=== PATIENT | male | born 1930 | race Caucasian/White ===

== ENCOUNTER 2019-04-21 10:26 | Inpatient (IN) ==
[2019-04-21] MEDS ORDERED: ONDANSETRON 4 MG/2 ML VIAL IV PRN (15:05)
[2019-04-21] MEDS ORDERED: ACETAMINOPHEN 325 MG TABLET PO PRN (15:05)
[2019-04-21] MEDS ORDERED: LACTULOSE 20 GM/30 ML UDCUP PO PRN (15:05)
[2019-04-21] MEDS ORDERED: ALBUTEROL 2.5 MG/3 ML NEB RESP TX PRN (15:10)
[2019-04-21] MEDS ORDERED: BENZONATATE 100 MG CAPSULE PO PRN (15:19)
[2019-04-21] MEDS: ALBUTEROL/IPRATROPIUM 3 ML NEB RESP TX SCH ×2 (15:50→19:17)
[2019-04-21] MEDS: LEVOFLOXACIN INJ 750 MG in PREMIX 1 EACH IV SCH (16:33)
[2019-04-21] MEDS: FUROSEMIDE 40 MG/4 ML VIAL IV SCH (16:39)
[2019-04-21 16:41] LABS: Basophils % 0.1 % (0.0-0.8); Hematocrit 32.8 VOL% (42.0-52.0); Hemoglobin 10.7 GM/DL (14.0-18.0); Immature Granulocytes % 0.7 %; Immature Granulocytes Absolute 0.13 #; Lymphocytes # 0.3 10*3/uL (1.4-4.0); Lymphocytes % 1.4 % (21.2-54.2); Mean Corpuscular HGB Conc 32.6 GM/DL (32-36); Mean Corpuscular Volume 90.1 FL (87-102); Mean Platelet Volume 10.5 FL (9.6-12.0); Monocytes % 3.4 % (1.7-12.7); Neutrophils % 94.4 % (38.7-73.9); Platelet Count 285 T/CUMM (130-400); Red Blood Count 3.64 MC/CUMM (3.8-5.5); Red Cell Distribution Width 14.6 % (9.3-17.3); White Blood Count 17.6 T/CUMM (4-12)
[2019-04-21 17:14] LABS: Albumin 2.3 G/DL (3.4-5.0); Bilirubin,Total 1.8 MG/DL (0.2-1.0); Calcium 8.1 MG/DL (8.5-10.1); Osmolality,Calculated 296.1 MOS/KG (273-304); Thyroid Stimulating Hormone 1.71 uIU/ml (0.358-3.74); Total Protein 6.2 G/DL (6.4-8.3)
[2019-04-21 17:37] LABS: Lymphocytes 2 % (20-55); Nucleated Red Blood Cells 1 (0-5); Segmented Neutrophils 95 % (50-85); Total Cells Counted 100
[2019-04-21 17:38] LABS: Burr Cells 1+; Platelet Estimate Normal; Poikilocytosis 1+; Reactive Lymphocytes Slight
[2019-04-21] MEDS: MEROPENEM 1,000 MG in SODIUM CHLORIDE 0.9% 100 ML IV SCH (17:40)
[2019-04-21] MEDS: POTASSIUM CHLORIDE 20 MEQ TABLET PO PRN (17:40)
[2019-04-21] MEDS: APIXABAN 5 MG TABLET PO SCH (20:29)
[2019-04-22] MEDS: ALBUTEROL/IPRATROPIUM 3 ML NEB RESP TX SCH ×4 (01:17→21:04)
[2019-04-22] MEDS: MEROPENEM 1,000 MG in SODIUM CHLORIDE 0.9% 100 ML IV SCH ×3 (01:23→18:33)
[2019-04-22 04:30] LABS: Basophils % 0.2 % (0.0-0.8); Hematocrit 34.7 VOL% (42.0-52.0); Hemoglobin 11.2 GM/DL (14.0-18.0); Immature Granulocytes % 0.8 %; Immature Granulocytes Absolute 0.15 #; Lymphocytes # 0.3 10*3/uL (1.4-4.0); Lymphocytes % 1.7 % (21.2-54.2); Mean Corpuscular HGB Conc 32.3 GM/DL (32-36); Mean Corpuscular Volume 90.6 FL (87-102); Mean Platelet Volume 10.8 FL (9.6-12.0); Monocytes % 5.4 % (1.7-12.7); Neutrophils % 91.9 % (38.7-73.9); Platelet Count 264 T/CUMM (130-400); Red Blood Count 3.83 MC/CUMM (3.8-5.5); Red Cell Distribution Width 14.7 % (9.3-17.3); White Blood Count 18.4 T/CUMM (4-12)
[2019-04-22 04:45] LABS: Albumin 2.3 G/DL (3.4-5.0); Bilirubin,Total 1.5 MG/DL (0.2-1.0); Calcium 8.1 MG/DL (8.5-10.1); Osmolality,Calculated 301.7 MOS/KG (273-304); Risk Ratio 2.53; Total Protein 5.7 G/DL (6.4-8.3); VLDL CHOLESTEROL 9.8 MG/DL
[2019-04-22 05:10] LABS: Amorphous Crystals,Urine Occasional /HPF (Few); Apearance,Urine CLEAR (Clear); Bacteria,Urine Occasional /HPF (Few); Bilirubin,Urine Negative (Negative); Blood, Urine Moderate mg/dL (Negative); Glucose,Urine (UA) 50 mg/dL (Negative); Hyaline Casts,Urine 18 /LPF (0-3); Ketones,Urine 5 mg/dL (Negative); Mucus,Urine Occasional /LPF (Occasional); Nitrite,Urine Negative (Negative); Protein,Urine 30 MG/DL; RBC,Urine <1 /HPF (0-4); Squamous Epithelial Cell,Urine Occasional /HPF (0-10); Urine Color Yellow (Yellow); Urine Specific Gravity 1.017 (1.001-1.035); Urine Urobilinogen < 2.0 EU/DL (0.2-1.0); WBC,Urine 2 /HPF (0-6)
[2019-04-22 05:18] LABS: Lymphocytes 3 % (20-55); Platelet Estimate Adequate; Segmented Neutrophils 91 % (50-85); Total Cells Counted 100
[2019-04-22 05:19] LABS: Hypochromasia Slight; Ovalocytes Slight
[2019-04-22] MEDS ORDERED: hydrALAZINE 20 MG/1 ML VIAL IV PRN (08:35)
[2019-04-22] MEDS: FUROSEMIDE 40 MG/4 ML VIAL IV SCH ×2 (08:38→17:00)
[2019-04-22] MEDS ORDERED: LOSARTAN 25 MG TABLET PO SCH (09:00)
[2019-04-22] MEDS: APIXABAN 5 MG TABLET PO SCH ×2 (09:28→20:21)
[2019-04-22] MEDS: PANTOPRAZOLE 40 MG TABLET PO SCH (09:28)
[2019-04-22] MEDS: METOPROLOL SUCCINATE XL 50 MG TABLET PO SCH (09:28)
[2019-04-22] MEDS: TAMSULOSIN 0.4 MG CAPSULE PO SCH (09:28)
[2019-04-22] MEDS: ISOSORBIDE MONONITRATE 60 MG TABLET PO SCH (09:28)
[2019-04-22] MEDS: MAGNESIUM OXIDE 400 MG TABLET PO SCH (09:28)
[2019-04-22] MEDS: LOSARTAN 25 MG TABLET PO SCH (09:28)
[2019-04-22] MEDS: POTASSIUM CHLORIDE 20 MEQ TABLET PO PRN ×2 (10:06→12:48)
[2019-04-22] MEDS: LEVOFLOXACIN INJ 750 MG in PREMIX 1 EACH IV SCH (17:01)
[2019-04-23] MEDS: ALBUTEROL/IPRATROPIUM 3 ML NEB RESP TX SCH ×4 (01:19→19:41)
[2019-04-23] MEDS: MEROPENEM 1,000 MG in SODIUM CHLORIDE 0.9% 100 ML IV SCH ×2 (01:24→10:11)
[2019-04-23 05:55] LABS: Basophils % 0.1 % (0.0-0.8); Eosinophils % 0.1 % (0.00-10.9); Hematocrit 34.7 VOL% (42.0-52.0); Hemoglobin 11.2 GM/DL (14.0-18.0); Immature Granulocytes % 1.4 %; Immature Granulocytes Absolute 0.21 #; Lymphocytes # 0.5 10*3/uL (1.4-4.0); Lymphocytes % 3.2 % (21.2-54.2); Mean Corpuscular HGB Conc 32.3 GM/DL (32-36); Mean Corpuscular Volume 89.4 FL (87-102); Mean Platelet Volume 10.6 FL (9.6-12.0); Monocytes % 5.2 % (1.7-12.7); NRBC # 0.02 10*3/uL; Platelet Count 270 T/CUMM (130-400); Red Blood Count 3.88 MC/CUMM (3.8-5.5); White Blood Count 15.2 T/CUMM (4-12)
[2019-04-23 06:15] LABS: Hypochromasia Slight; Lymphocytes 5 % (20-55); Platelet Estimate Adequate; Segmented Neutrophils 91 % (50-85); Total Cells Counted 100
[2019-04-23] MEDS: MAGNESIUM OXIDE 400 MG TABLET PO SCH (09:23)
[2019-04-23] MEDS: PANTOPRAZOLE 40 MG TABLET PO SCH (09:23)
[2019-04-23] MEDS: METOPROLOL SUCCINATE XL 50 MG TABLET PO SCH (09:23)
[2019-04-23] MEDS: FLUCONAZOLE 100 MG TABLET PO SCH (09:23)
[2019-04-23] MEDS: LOSARTAN 25 MG TABLET PO SCH (09:24)
[2019-04-23] MEDS: APIXABAN 5 MG TABLET PO SCH ×2 (09:24→21:24)
[2019-04-23] MEDS: ISOSORBIDE MONONITRATE 60 MG TABLET PO SCH (09:24)
[2019-04-23] MEDS: NYSTATIN 500,000 UNIT/5 ML UDCUP SWISH/SWAL SCH ×2 (09:24→21:24)
[2019-04-23] MEDS: TAMSULOSIN 0.4 MG CAPSULE PO SCH (09:24)
[2019-04-23] MEDS: FUROSEMIDE 40 MG/4 ML VIAL IV SCH ×2 (09:25→16:19)
[2019-04-23] MEDS ORDERED: TUBERCULIN SKIN TEST 0.1 ML SYRINGE INTRADERM ONE (15:36)
[2019-04-23] MEDS: MELATONIN 3 MG TABLET PO SCH (21:24)
[2019-04-23] MEDS: traZODone 50 MG TABLET PO SCH (21:25)
[2019-04-24] MEDS: ALBUTEROL/IPRATROPIUM 3 ML NEB RESP TX SCH ×4 (01:03→19:47)
[2019-04-24] MEDS: MAGNESIUM OXIDE 400 MG TABLET PO SCH (09:36)
[2019-04-24] MEDS: ISOSORBIDE MONONITRATE 60 MG TABLET PO SCH (09:37)
[2019-04-24] MEDS: TAMSULOSIN 0.4 MG CAPSULE PO SCH (09:37)
[2019-04-24] MEDS: METOPROLOL SUCCINATE XL 50 MG TABLET PO SCH (09:37)
[2019-04-24] MEDS: APIXABAN 5 MG TABLET PO SCH ×2 (09:37→20:42)
[2019-04-24] MEDS: LOSARTAN 25 MG TABLET PO SCH (09:37)
[2019-04-24] MEDS: FLUCONAZOLE 100 MG TABLET PO SCH (09:37)
[2019-04-24] MEDS: PANTOPRAZOLE 40 MG TABLET PO SCH (09:37)
[2019-04-24] MEDS: FUROSEMIDE 40 MG/4 ML VIAL IV SCH ×2 (09:38→16:49)
[2019-04-24] MEDS: NYSTATIN 500,000 UNIT/5 ML UDCUP SWISH/SWAL SCH ×2 (09:38→20:41)
[2019-04-24] MEDS: Fluticasone Furoate-Vilanterol [Breo Ellipta] 1 inh INH SCH (09:40)
[2019-04-24] MEDS: methylPREDNISolone SOD SUC 40 MG/1 ML VIAL IV SCH ×3 (12:02→23:13)
[2019-04-24] MEDS ORDERED: GLUCAGON 1 MG VIAL IM PRN (20:00)
[2019-04-24] MEDS ORDERED: DEXTROSE 10% 250 ML BAG IV PRN (20:00)
[2019-04-24] MEDS: traZODone 50 MG TABLET PO SCH (20:42)
[2019-04-24] MEDS: MELATONIN 3 MG TABLET PO SCH ×2 (20:42→23:12)
[2019-04-24] MEDS: INSULIN LISPRO 100 UNIT/ML SUBCUT SCH (20:42)
[2019-04-25] MEDS: ALBUTEROL/IPRATROPIUM 3 ML NEB RESP TX SCH ×4 (01:10→20:35)
[2019-04-25 04:25] LABS: Basophils % 0.1 % (0.0-0.8); Eosinophils % 0.1 % (0.00-10.9); Hematocrit 34.8 VOL% (42.0-52.0); Hemoglobin 11.2 GM/DL (14.0-18.0); Immature Granulocytes Absolute 0.14 #; Lymphocytes # 0.4 10*3/uL (1.4-4.0); Lymphocytes % 2.7 % (21.2-54.2); Mean Corpuscular HGB Conc 32.2 GM/DL (32-36); Mean Corpuscular Volume 90.4 FL (87-102); Monocytes % 1.6 % (1.7-12.7); Neutrophils % 94.5 % (38.7-73.9); Platelet Count 243 T/CUMM (130-400); Red Blood Count 3.85 MC/CUMM (3.8-5.5); Red Cell Distribution Width 14.8 % (9.3-17.3); White Blood Count 13.4 T/CUMM (4-12)
[2019-04-25 04:59] LABS: Calcium 8.1 MG/DL (8.5-10.1); Osmolality,Calculated 303.8 MOS/KG (273-304)
[2019-04-25 05:37] LABS: Anisocytosis 1+; Lymphocytes 5 % (20-55); Platelet Estimate Adequate; Segmented Neutrophils 91 % (50-85); Total Cells Counted 100
[2019-04-25] MEDS: methylPREDNISolone SOD SUC 40 MG/1 ML VIAL IV SCH ×3 (06:03→17:45)
[2019-04-25] MEDS: POTASSIUM CHLORIDE 20 MEQ TABLET PO PRN ×3 (06:04→16:36)
[2019-04-25] MEDS: INSULIN LISPRO 100 UNIT/ML SUBCUT SCH ×4 (09:17→22:10)
[2019-04-25] MEDS: FUROSEMIDE 40 MG/4 ML VIAL IV SCH ×2 (09:17→16:37)
[2019-04-25] MEDS: FLUCONAZOLE 100 MG TABLET PO SCH (09:18)
[2019-04-25] MEDS: NYSTATIN 500,000 UNIT/5 ML UDCUP SWISH/SWAL SCH ×2 (09:18→21:24)
[2019-04-25] MEDS: APIXABAN 2.5 MG TABLET PO SCH ×2 (09:18→21:24)
[2019-04-25] MEDS: ISOSORBIDE MONONITRATE 60 MG TABLET PO SCH (09:18)
[2019-04-25] MEDS: TAMSULOSIN 0.4 MG CAPSULE PO SCH (09:18)
[2019-04-25] MEDS: METOPROLOL SUCCINATE XL 50 MG TABLET PO SCH (09:19)
[2019-04-25] MEDS: LOSARTAN 25 MG TABLET PO SCH (09:19)
[2019-04-25] MEDS: PANTOPRAZOLE 40 MG TABLET PO SCH (09:19)
[2019-04-25] MEDS: MAGNESIUM OXIDE 400 MG TABLET PO SCH (09:20)
[2019-04-25] MEDS: Fluticasone Furoate-Vilanterol [Breo Ellipta] 1 inh INH SCH (09:21)
[2019-04-25] MEDS: MEROPENEM 1,000 MG in SODIUM CHLORIDE 0.9% 100 ML IV SCH (16:36)
[2019-04-25] MEDS: traZODone 50 MG TABLET PO SCH (21:24)
[2019-04-25] MEDS: MELATONIN 3 MG TABLET PO SCH (21:25)
[2019-04-26] MEDS: methylPREDNISolone SOD SUC 40 MG/1 ML VIAL IV SCH ×5 (00:11→23:00)
[2019-04-26] MEDS: MELATONIN 3 MG TABLET PO SCH ×3 (00:11→22:59)
[2019-04-26] MEDS: ALBUTEROL/IPRATROPIUM 3 ML NEB RESP TX SCH ×4 (00:12→20:04)
[2019-04-26] MEDS: MEROPENEM 1,000 MG in SODIUM CHLORIDE 0.9% 100 ML IV SCH ×2 (05:16→15:22)
[2019-04-26 05:26] LABS: Basophils % 0.2 % (0.0-0.8); Hematocrit 33.8 VOL% (42.0-52.0); Hemoglobin 10.9 GM/DL (14.0-18.0); Immature Granulocytes Absolute 0.22 #; Lymphocytes # 0.4 10*3/uL (1.4-4.0); Mean Corpuscular HGB Conc 32.2 GM/DL (32-36); Mean Corpuscular Volume 90.1 FL (87-102); Mean Platelet Volume 11.1 FL (9.6-12.0); Monocytes % 2.9 % (1.7-12.7); Neutrophils % 93.9 % (38.7-73.9); Platelet Count 238 T/CUMM (130-400); Red Blood Count 3.75 MC/CUMM (3.8-5.5); Red Cell Distribution Width 14.9 % (9.3-17.3); White Blood Count 21.2 T/CUMM (4-12)
[2019-04-26 05:57] LABS: Lymphocytes 3 % (20-55); Segmented Neutrophils 97 % (50-85); Total Cells Counted 100
[2019-04-26 05:58] LABS: Anisocytosis 1+; Ovalocytes 1+; Platelet Estimate Adequate
[2019-04-26] MEDS: NYSTATIN 500,000 UNIT/5 ML UDCUP SWISH/SWAL SCH ×2 (09:15→20:17)
[2019-04-26] MEDS: MAGNESIUM OXIDE 400 MG TABLET PO SCH (09:16)
[2019-04-26] MEDS: TAMSULOSIN 0.4 MG CAPSULE PO SCH (09:16)
[2019-04-26] MEDS: ISOSORBIDE MONONITRATE 60 MG TABLET PO SCH (09:16)
[2019-04-26] MEDS: METOPROLOL SUCCINATE XL 50 MG TABLET PO SCH (09:16)
[2019-04-26] MEDS: FUROSEMIDE 40 MG/4 ML VIAL IV SCH ×2 (09:17→15:22)
[2019-04-26] MEDS: FLUCONAZOLE 100 MG TABLET PO SCH (09:17)
[2019-04-26] MEDS: INSULIN LISPRO 100 UNIT/ML SUBCUT SCH ×4 (09:17→20:16)
[2019-04-26] MEDS: LOSARTAN 25 MG TABLET PO SCH (09:17)
[2019-04-26] MEDS: PANTOPRAZOLE 40 MG TABLET PO SCH (09:17)
[2019-04-26] MEDS: APIXABAN 2.5 MG TABLET PO SCH ×2 (09:17→20:17)
[2019-04-26] MEDS: Fluticasone Furoate-Vilanterol [Breo Ellipta] 1 inh INH SCH (09:18)
[2019-04-26] MEDS ORDERED: FUROSEMIDE 40 MG/4 ML VIAL IV ONE (11:06)
[2019-04-26] MEDS: traZODone 50 MG TABLET PO SCH (20:17)
[2019-04-27] MEDS: ALBUTEROL/IPRATROPIUM 3 ML NEB RESP TX SCH ×4 (01:02→19:28)
[2019-04-27 04:39] LABS: Basophils % 0.1 % (0.0-0.8); Hematocrit 36.4 VOL% (42.0-52.0); Hemoglobin 11.6 GM/DL (14.0-18.0); Immature Granulocytes % 1.3 %; Lymphocytes # 0.4 10*3/uL (1.4-4.0); Lymphocytes % 1.6 % (21.2-54.2); Mean Corpuscular HGB Conc 31.9 GM/DL (32-36); Mean Corpuscular Volume 89.7 FL (87-102); Mean Platelet Volume 11.3 FL (9.6-12.0); Monocytes % 2.6 % (1.7-12.7); Neutrophils % 94.4 % (38.7-73.9); Platelet Count 270 T/CUMM (130-400); Red Blood Count 4.06 MC/CUMM (3.8-5.5); Red Cell Distribution Width 14.8 % (9.3-17.3); White Blood Count 23.3 T/CUMM (4-12)
[2019-04-27 05:05] LABS: Hypochromasia 1+; Lymphocytes 3 % (20-55); Platelet Estimate Adequate; Segmented Neutrophils 92 % (50-85); Total Cells Counted 100
[2019-04-27] MEDS: methylPREDNISolone SOD SUC 40 MG/1 ML VIAL IV SCH ×4 (05:16→22:56)
[2019-04-27] MEDS: MEROPENEM 1,000 MG in SODIUM CHLORIDE 0.9% 100 ML IV SCH ×2 (05:17→16:03)
[2019-04-27 05:19] LABS: Calcium 8.2 MG/DL (8.5-10.1); Osmolality,Calculated 313.7 MOS/KG (273-304)
[2019-04-27] MEDS: POTASSIUM CHLORIDE 20 MEQ TABLET PO PRN ×4 (09:51→16:03)
[2019-04-27] MEDS: TAMSULOSIN 0.4 MG CAPSULE PO SCH (09:51)
[2019-04-27] MEDS: PANTOPRAZOLE 40 MG TABLET PO SCH (09:52)
[2019-04-27] MEDS: ISOSORBIDE MONONITRATE 60 MG TABLET PO SCH (09:52)
[2019-04-27] MEDS: NYSTATIN 500,000 UNIT/5 ML UDCUP SWISH/SWAL SCH ×2 (09:52→21:48)
[2019-04-27] MEDS: MAGNESIUM OXIDE 400 MG TABLET PO SCH (09:52)
[2019-04-27] MEDS: FUROSEMIDE 40 MG/4 ML VIAL IV SCH (09:52)
[2019-04-27] MEDS: APIXABAN 2.5 MG TABLET PO SCH (09:52)
[2019-04-27] MEDS: METOPROLOL SUCCINATE XL 50 MG TABLET PO SCH (09:52)
[2019-04-27] MEDS: LOSARTAN 25 MG TABLET PO SCH (09:52)
[2019-04-27] MEDS: FLUCONAZOLE 100 MG TABLET PO SCH (09:52)
[2019-04-27] MEDS: INSULIN LISPRO 100 UNIT/ML SUBCUT SCH ×4 (09:55→22:55)
[2019-04-27] MEDS: Fluticasone Furoate-Vilanterol [Breo Ellipta] 1 inh INH SCH (09:56)
[2019-04-27] MEDS: HYDROCORTISONE 25 MG SUPP RECTAL SCH ×2 (16:02→21:48)
[2019-04-27] MEDS: FUROSEMIDE 40 MG TABLET PO SCH (16:03)
[2019-04-27] MEDS: MELATONIN 3 MG TABLET PO SCH (21:48)
[2019-04-27] MEDS: traZODone 50 MG TABLET PO SCH (21:48)
[2019-04-28] MEDS: ALBUTEROL/IPRATROPIUM 3 ML NEB RESP TX SCH ×5 (00:28→20:20)
[2019-04-28] MEDS: MEROPENEM 1,000 MG in SODIUM CHLORIDE 0.9% 100 ML IV SCH ×2 (04:12→15:03)
[2019-04-28 05:25] LABS: Basophils % 0.1 % (0.0-0.8); Hematocrit 33.8 VOL% (42.0-52.0); Hemoglobin 10.9 GM/DL (14.0-18.0); Immature Granulocytes % 1.8 %; Immature Granulocytes Absolute 0.31 #; Lymphocytes # 0.3 10*3/uL (1.4-4.0); Lymphocytes % 1.5 % (21.2-54.2); Mean Corpuscular HGB Conc 32.2 GM/DL (32-36); Mean Corpuscular Volume 89.7 FL (87-102); Mean Platelet Volume 11.8 FL (9.6-12.0); Monocytes % 2.6 % (1.7-12.7); Platelet Count 226 T/CUMM (130-400); Red Blood Count 3.77 MC/CUMM (3.8-5.5); Red Cell Distribution Width 14.9 % (9.3-17.3); White Blood Count 17.5 T/CUMM (4-12)
[2019-04-28 05:49] LABS: Band Neutrophils 1 % (0-10); Hypochromasia 1+; Lymphocytes 2 % (20-55); Platelet Estimate Adequate; Segmented Neutrophils 95 % (50-85); Total Cells Counted 100
[2019-04-28 06:00] LABS: Calcium 7.8 MG/DL (8.5-10.1); Osmolality,Calculated 315.6 MOS/KG (273-304)
[2019-04-28] MEDS ORDERED: FAMOTIDINE 20 MG TABLET PO ONE (06:00)
[2019-04-28] MEDS ORDERED: ALBUTEROL/IPRATROPIUM 3 ML NEB RESP TX ONE (08:04)
[2019-04-28] MEDS: INSULIN LISPRO 100 UNIT/ML SUBCUT SCH ×4 (08:47→21:27)
[2019-04-28] MEDS: methylPREDNISolone SOD SUC 40 MG/1 ML VIAL IV SCH ×3 (08:47→23:29)
[2019-04-28] MEDS ORDERED: LACTATED RINGERS 1,000 ML IV SCH (09:30)
[2019-04-28] MEDS ORDERED: PROPOFOL 200 MG/20 ML VIAL IV ONE (11:31)
[2019-04-28] MEDS ORDERED: LIDOCAINE 100 MG/5 ML SYRINGE ONE (11:31)
[2019-04-28] MEDS ORDERED: KETAMINE 500 MG/10 ML VIAL ONE (11:32)
[2019-04-28] MEDS ORDERED: ONDANSETRON 4 MG/2 ML VIAL ONE (11:33)
[2019-04-28] MEDS ORDERED: SUCCINYLCHOLINE 200 MG/10 ML VIAL ONE (11:33)
[2019-04-28] MEDS ORDERED: ROCURONIUM 100 MG/10 ML VIAL IV ONE (11:33)
[2019-04-28] MEDS ORDERED: DEXAMETHASONE 4 MG/1 ML VIAL ONE (11:33)
[2019-04-28] MEDS: Fluticasone Furoate-Vilanterol [Breo Ellipta] 1 inh INH SCH (14:00)
[2019-04-28] MEDS: NYSTATIN 500,000 UNIT/5 ML UDCUP SWISH/SWAL SCH ×2 (14:00→21:27)
[2019-04-28] MEDS: FUROSEMIDE 40 MG TABLET PO SCH ×2 (14:00→21:27)
[2019-04-28] MEDS: ISOSORBIDE MONONITRATE 60 MG TABLET PO SCH (14:00)
[2019-04-28] MEDS: HYDROCORTISONE 25 MG SUPP RECTAL SCH ×2 (14:00→21:26)
[2019-04-28] MEDS: METOPROLOL SUCCINATE XL 50 MG TABLET PO SCH (14:05)
[2019-04-28] MEDS: FLUCONAZOLE 100 MG TABLET PO SCH (14:55)
[2019-04-28] MEDS: LOSARTAN 25 MG TABLET PO SCH (14:55)
[2019-04-28] MEDS: TAMSULOSIN 0.4 MG CAPSULE PO SCH (14:55)
[2019-04-28] MEDS: MAGNESIUM OXIDE 400 MG TABLET PO SCH (14:56)
[2019-04-28] MEDS: PANTOPRAZOLE 40 MG VIAL IV SCH (14:57)
[2019-04-28] MEDS: traZODone 50 MG TABLET PO SCH (21:27)
[2019-04-28] MEDS: APIXABAN 2.5 MG TABLET PO SCH (21:27)
[2019-04-28] MEDS: MELATONIN 3 MG TABLET PO SCH (21:27)
[2019-04-29] MEDS: ALBUTEROL/IPRATROPIUM 3 ML NEB RESP TX SCH ×4 (00:18→20:41)
[2019-04-29] MEDS: MEROPENEM 1,000 MG in SODIUM CHLORIDE 0.9% 100 ML IV SCH ×2 (03:58→15:38)
[2019-04-29 05:39] LABS: Basophils % 0.2 % (0.0-0.8); Hematocrit 37.2 VOL% (42.0-52.0); Hemoglobin 11.5 GM/DL (14.0-18.0); Immature Granulocytes Absolute 0.35 #; Lymphocytes # 0.3 10*3/uL (1.4-4.0); Lymphocytes % 1.9 % (21.2-54.2); Mean Corpuscular HGB Conc 30.9 GM/DL (32-36); Mean Corpuscular Volume 92.3 FL (87-102); Mean Platelet Volume 11.6 FL (9.6-12.0); Monocytes % 5.1 % (1.7-12.7); Neutrophils % 90.8 % (38.7-73.9); Platelet Count 220 T/CUMM (130-400); Red Blood Count 4.03 MC/CUMM (3.8-5.5); White Blood Count 17.7 T/CUMM (4-12)
[2019-04-29 05:58] LABS: Calcium 7.8 MG/DL (8.5-10.1); Osmolality,Calculated 320.1 MOS/KG (273-304)
[2019-04-29 06:03] LABS: Hypochromasia 1+; Lymphocytes 1 % (20-55); Platelet Estimate Adequate; Segmented Neutrophils 95 % (50-85); Total Cells Counted 100
[2019-04-29] MEDS: METOPROLOL SUCCINATE XL 50 MG TABLET PO SCH (09:23)
[2019-04-29] MEDS: FLUCONAZOLE 100 MG TABLET PO SCH (09:23)
[2019-04-29] MEDS: MAGNESIUM OXIDE 400 MG TABLET PO SCH (09:23)
[2019-04-29] MEDS: APIXABAN 2.5 MG TABLET PO SCH ×2 (09:24→20:34)
[2019-04-29] MEDS: LOSARTAN 25 MG TABLET PO SCH (09:24)
[2019-04-29] MEDS: FUROSEMIDE 40 MG TABLET PO SCH ×2 (09:24→15:38)
[2019-04-29] MEDS: ISOSORBIDE MONONITRATE 60 MG TABLET PO SCH (09:24)
[2019-04-29] MEDS: TAMSULOSIN 0.4 MG CAPSULE PO SCH (09:24)
[2019-04-29] MEDS: NYSTATIN 500,000 UNIT/5 ML UDCUP SWISH/SWAL SCH ×2 (09:24→20:34)
[2019-04-29] MEDS: INSULIN LISPRO 100 UNIT/ML SUBCUT SCH ×4 (09:26→20:42)
[2019-04-29] MEDS: HYDROCORTISONE 25 MG SUPP RECTAL SCH ×2 (10:55→20:34)
[2019-04-29] MEDS: Fluticasone Furoate-Vilanterol [Breo Ellipta] 1 inh INH SCH (10:55)
[2019-04-29] MEDS: methylPREDNISolone SOD SUC 40 MG/1 ML VIAL IV SCH ×2 (10:55→15:38)
[2019-04-29] MEDS: PANTOPRAZOLE 40 MG VIAL IV SCH (11:19)
[2019-04-29] MEDS: MELATONIN 3 MG TABLET PO SCH (20:34)
[2019-04-29] MEDS: traZODone 50 MG TABLET PO SCH (20:34)
[2019-04-30] MEDS: methylPREDNISolone SOD SUC 40 MG/1 ML VIAL IV SCH ×4 (00:09→23:07)
[2019-04-30] MEDS: ALBUTEROL/IPRATROPIUM 3 ML NEB RESP TX SCH ×4 (01:45→20:05)
[2019-04-30] MEDS: MEROPENEM 1,000 MG in SODIUM CHLORIDE 0.9% 100 ML IV SCH ×2 (04:52→15:15)
[2019-04-30 05:39] LABS: Basophils % 0.1 % (0.0-0.8); Hematocrit 37.1 VOL% (42.0-52.0); Hemoglobin 11.5 GM/DL (14.0-18.0); Immature Granulocytes % 1.3 %; Immature Granulocytes Absolute 0.22 #; Lymphocytes # 0.2 10*3/uL (1.4-4.0); Lymphocytes % 1.4 % (21.2-54.2); Mean Corpuscular Volume 91.8 FL (87-102); Mean Platelet Volume 11.8 FL (9.6-12.0); Monocytes % 1.4 % (1.7-12.7); Neutrophils % 95.8 % (38.7-73.9); Platelet Count 195 T/CUMM (130-400); Red Blood Count 4.04 MC/CUMM (3.8-5.5); White Blood Count 16.5 T/CUMM (4-12)
[2019-04-30 05:55] LABS: Osmolality,Calculated 321.7 MOS/KG (273-304)
[2019-04-30 06:09] LABS: Hypochromasia 1+; Lymphocytes 1 % (20-55); Nucleated Red Blood Cells 1 (0-5); Platelet Estimate Adequate; Segmented Neutrophils 99 % (50-85); Total Cells Counted 100
[2019-04-30] MEDS ORDERED: MIDAZOLAM 2 MG/2 ML VIAL ONE (07:28)
[2019-04-30] MEDS ORDERED: MEPERIDINE 50 MG/1 ML VIAL IM ONE (07:30)
[2019-04-30] MEDS ORDERED: PROMETHAZINE 25 MG/1 ML VIAL IM ONE (07:30)
[2019-04-30] MEDS ORDERED: MIDAZOLAM 2 MG/2 ML VIAL IV ONE (08:00)
[2019-04-30] MEDS ORDERED: LIDOCAINE 2% 20 ML VIAL RESP TX ONE (08:00)
[2019-04-30] MEDS ORDERED: LIDOCAINE 2% VISCOUS 100 ML BOTTLE SWISH/SPIT ONE (08:00)
[2019-04-30] MEDS ORDERED: LIDOCAINE 1% 20 ML VIAL MISC INJ ONE (08:00)
[2019-04-30] MEDS: INSULIN LISPRO 100 UNIT/ML SUBCUT SCH ×4 (08:15→20:48)
[2019-04-30] MEDS: MAGNESIUM OXIDE 400 MG TABLET PO SCH (10:41)
[2019-04-30] MEDS: NYSTATIN 500,000 UNIT/5 ML UDCUP SWISH/SWAL SCH ×2 (10:41→20:39)
[2019-04-30] MEDS: HYDROCORTISONE 25 MG SUPP RECTAL SCH ×2 (10:41→20:40)
[2019-04-30] MEDS: METOPROLOL SUCCINATE XL 50 MG TABLET PO SCH (10:42)
[2019-04-30] MEDS: ISOSORBIDE MONONITRATE 60 MG TABLET PO SCH (10:42)
[2019-04-30] MEDS: FLUCONAZOLE 100 MG TABLET PO SCH (10:42)
[2019-04-30] MEDS: TAMSULOSIN 0.4 MG CAPSULE PO SCH (10:42)
[2019-04-30] MEDS: APIXABAN 2.5 MG TABLET PO SCH ×2 (10:42→20:39)
[2019-04-30] MEDS: LOSARTAN 25 MG TABLET PO SCH (10:43)
[2019-04-30] MEDS: PANTOPRAZOLE 40 MG VIAL IV SCH (10:43)
[2019-04-30] MEDS: Fluticasone Furoate-Vilanterol [Breo Ellipta] 1 inh INH SCH (10:43)
[2019-04-30] MEDS: DEXTROSE 5% 1,000 ML IV SCH (12:16)
[2019-04-30] MEDS: traZODone 50 MG TABLET PO SCH (20:39)
[2019-04-30] MEDS: MELATONIN 3 MG TABLET PO SCH (20:39)
[2019-05-01] MEDS: ALBUTEROL/IPRATROPIUM 3 ML NEB RESP TX SCH ×2 (00:58→07:15)
[2019-05-01] MEDS: MEROPENEM 1,000 MG in SODIUM CHLORIDE 0.9% 100 ML IV SCH (04:51)
[2019-05-01 05:16] LABS: Basophils % 0.1 % (0.0-0.8); Hematocrit 35.7 VOL% (42.0-52.0); Hemoglobin 11.2 GM/DL (14.0-18.0); Immature Granulocytes % 2.1 %; Lymphocytes # 0.3 10*3/uL (1.4-4.0); Lymphocytes % 1.1 % (21.2-54.2); Mean Corpuscular HGB Conc 31.4 GM/DL (32-36); Mean Corpuscular Volume 91.8 FL (87-102); Mean Platelet Volume 12.3 FL (9.6-12.0); Monocytes % 1.8 % (1.7-12.7); Neutrophils % 94.9 % (38.7-73.9); Platelet Count 176 T/CUMM (130-400); Red Blood Count 3.89 MC/CUMM (3.8-5.5); Red Cell Distribution Width 15.1 % (9.3-17.3); White Blood Count 24.4 T/CUMM (4-12)
[2019-05-01] MEDS: DEXTROSE 5% 1,000 ML IV SCH (05:29)
[2019-05-01 05:43] LABS: Hypochromasia 1+; Platelet Estimate Adequate; Segmented Neutrophils 99 % (50-85); Total Cells Counted 100
[2019-05-01] MEDS: methylPREDNISolone SOD SUC 40 MG/1 ML VIAL IV SCH (06:07)
[2019-05-01 06:12] LABS: Calcium 7.5 MG/DL (8.5-10.1); Osmolality,Calculated 312.3 MOS/KG (273-304)
[2019-05-01] MEDS ORDERED: FUROSEMIDE 40 MG TABLET PO SCH (09:00)
[2019-05-01] MEDS: POTASSIUM CHLORIDE 20 MEQ TABLET PO PRN (10:03)
[2019-05-01] MEDS: ISOSORBIDE MONONITRATE 60 MG TABLET PO SCH (10:03)
[2019-05-01] MEDS: TAMSULOSIN 0.4 MG CAPSULE PO SCH (10:04)
[2019-05-01] MEDS: LOSARTAN 25 MG TABLET PO SCH (10:04)
[2019-05-01] MEDS: APIXABAN 2.5 MG TABLET PO SCH (10:04)
[2019-05-01] MEDS: METOPROLOL SUCCINATE XL 50 MG TABLET PO SCH (10:04)
[2019-05-01] MEDS: MAGNESIUM OXIDE 400 MG TABLET PO SCH (10:04)
[2019-05-01] MEDS: FLUCONAZOLE 100 MG TABLET PO SCH (10:04)
[2019-05-01] MEDS: NYSTATIN 500,000 UNIT/5 ML UDCUP SWISH/SWAL SCH (10:04)
[2019-05-01] MEDS: Fluticasone Furoate-Vilanterol [Breo Ellipta] 1 inh INH SCH (10:07)
[2019-05-01] MEDS: HYDROCORTISONE 25 MG SUPP RECTAL SCH (10:08)
[2019-05-01] MEDS: INSULIN LISPRO 100 UNIT/ML SUBCUT SCH ×2 (10:08→13:59)
[2019-05-01] MEDS: PANTOPRAZOLE 40 MG VIAL IV SCH (10:09)
[2019-05-01 16:13] VITALS: BP 113/69
[2019-05-01] MEDS ORDERED: methylPREDNISolone SOD SUC 40 MG/1 ML VIAL IV SCH (20:00)
[2019-05-01] MEDS ORDERED: CEFDINIR 300 MG CAPSULE PO SCH (21:00)
== END 2019-05-01 15:50 | disposition swing bed (61) | DRG 177 ==
LOC: SUATTDRO 13:55 → N.ICU 13:55 → N.TELEN 04-22 13:42
PROVIDERS: ADMIT Internal Medicine; ATTEND Hospitalist

== ENCOUNTER 2019-05-06 13:25 | Inpatient (IN) ==
[2019-05-06] MEDS ORDERED: ACETAMINOPHEN 325 MG TABLET PO PRN (16:47)
[2019-05-06] MEDS ORDERED: ONDANSETRON 4 MG/2 ML VIAL IV PRN (16:47)
[2019-05-06] MEDS ORDERED: ALBUTEROL 2.5 MG/3 ML NEB RESP TX PRN (16:49)
[2019-05-06] MEDS ORDERED: BENZONATATE 100 MG CAPSULE PO PRN (17:21)
[2019-05-06 17:24] LABS: Basophils % 0.1 % (0.0-0.8); Eosinophils # 0.1 10*3/uL (0.0-0.87); Eosinophils % 0.6 % (0.00-10.9); Hematocrit 37.5 VOL% (42.0-52.0); Hemoglobin 11.6 GM/DL (14.0-18.0); Immature Granulocytes % 0.6 %; Immature Granulocytes Absolute 0.08 #; Lymphocytes # 0.4 10*3/uL (1.4-4.0); Lymphocytes % 3.2 % (21.2-54.2); Mean Corpuscular HGB Conc 30.9 GM/DL (32-36); Mean Corpuscular Volume 92.8 FL (87-102); Mean Platelet Volume 12.4 FL (9.6-12.0); Monocytes % 4.7 % (1.7-12.7); Neutrophils % 90.8 % (38.7-73.9); Platelet Count 100 T/CUMM (130-400); Red Blood Count 4.04 MC/CUMM (3.8-5.5); Red Cell Distribution Width 15.5 % (9.3-17.3); White Blood Count 12.9 T/CUMM (4-12)
[2019-05-06 18:00] LABS: Band Neutrophils 1 % (0-10); Eosinophils 1 % (0-10); Segmented Neutrophils 95 % (50-85); Total Cells Counted 100
[2019-05-06 18:01] LABS: Hypochromasia Slight; Platelet Estimate Adequate
[2019-05-06 18:04] LABS: Albumin 1.9 G/DL (3.4-5.0); Bilirubin,Total 2.7 MG/DL (0.2-1.0); Calcium 7.7 MG/DL (8.5-10.1); Total Protein 5.3 G/DL (6.4-8.3)
[2019-05-06] MEDS: ALBUTEROL/IPRATROPIUM 3 ML NEB RESP TX SCH (19:39)
[2019-05-06] MEDS ORDERED: guaiFENesin/DM ER 600-30 MG TABLET PO SCH (21:00)
[2019-05-06] MEDS: PIPERACILLIN/TAZOBACTAM 3,375 MG in SODIUM CHLORIDE 0.9% 100 ML IV SCH (22:41)
[2019-05-06] MEDS: APIXABAN 2.5 MG TABLET PO SCH (22:42)
[2019-05-06] MEDS: traZODone 50 MG TABLET PO SCH (22:42)
[2019-05-06] MEDS: DEXTROSE 5% 1,000 ML IV SCH (22:43)
[2019-05-07] MEDS: ALBUTEROL/IPRATROPIUM 3 ML NEB RESP TX SCH ×4 (00:18→19:36)
[2019-05-07 01:18] LABS: Apearance,Urine Slightly Hazy (Clear); Bacteria,Urine Occasional /HPF (Few); Bilirubin,Urine Negative (Negative); Blood, Urine Negative (Negative); Glucose,Urine (UA) >=500 mg/dL (Negative); Granular Casts,Urine 7 /LPF (0-1); Ketones,Urine Negative (Negative); Mucus,Urine Occasional /LPF (Occasional); Nitrite,Urine Negative (Negative); Protein,Urine 30 MG/DL; RBC,Urine 1 /HPF (0-4); Urine Color Amber (Yellow); Urine Specific Gravity 1.018 (1.001-1.035); Urine Urobilinogen < 2.0 EU/DL (0.2-1.0); WBC,Urine <1 /HPF (0-6)
[2019-05-07] MEDS: PIPERACILLIN/TAZOBACTAM 3,375 MG in SODIUM CHLORIDE 0.9% 100 ML IV SCH ×3 (04:58→18:28)
[2019-05-07 05:21] LABS: Basophils % 0.2 % (0.0-0.8); Eosinophils # 0.3 10*3/uL (0.0-0.87); Eosinophils % 2.3 % (0.00-10.9); Hematocrit 36.4 VOL% (42.0-52.0); Hemoglobin 11.1 GM/DL (14.0-18.0); Immature Granulocytes % 0.6 %; Immature Granulocytes Absolute 0.07 #; Lymphocytes # 0.5 10*3/uL (1.4-4.0); Lymphocytes % 4.1 % (21.2-54.2); Mean Corpuscular HGB Conc 30.5 GM/DL (32-36); Mean Corpuscular Volume 94.1 FL (87-102); Mean Platelet Volume 12.4 FL (9.6-12.0); Monocytes % 4.8 % (1.7-12.7); Platelet Count 103 T/CUMM (130-400); Red Blood Count 3.87 MC/CUMM (3.8-5.5); Red Cell Distribution Width 15.7 % (9.3-17.3); White Blood Count 11.1 T/CUMM (4-12)
[2019-05-07 05:44] LABS: Albumin 1.9 G/DL (3.4-5.0); Bilirubin,Total 2.8 MG/DL (0.2-1.0); Calcium 7.8 MG/DL (8.5-10.1); Osmolality,Calculated 309.7 MOS/KG (273-304); Risk Ratio 2.72; Thyroid Stimulating Hormone 1.7 uIU/ml (0.358-3.74); Total Protein 4.9 G/DL (6.4-8.3); VLDL CHOLESTEROL 15.2 MG/DL
[2019-05-07 05:59] LABS: Eosinophils 3 % (0-10); Lymphocytes 5 % (20-55); Platelet Estimate Decreased; Segmented Neutrophils 88 % (50-85); Total Cells Counted 100
[2019-05-07] MEDS: FUROSEMIDE 40 MG TABLET PO SCH (09:29)
[2019-05-07] MEDS: METOPROLOL SUCCINATE XL 50 MG TABLET PO SCH (09:29)
[2019-05-07] MEDS: APIXABAN 2.5 MG TABLET PO SCH ×2 (09:29→21:43)
[2019-05-07] MEDS: ISOSORBIDE MONONITRATE 60 MG TABLET PO SCH (09:29)
[2019-05-07] MEDS: FLUCONAZOLE 100 MG TABLET PO SCH (09:30)
[2019-05-07] MEDS: LOSARTAN 25 MG TABLET PO SCH (09:35)
[2019-05-07] MEDS: PANTOPRAZOLE 40 MG TABLET PO SCH (09:35)
[2019-05-07] MEDS: TAMSULOSIN 0.4 MG CAPSULE PO SCH (09:35)
[2019-05-07] MEDS: predniSONE 20 MG TABLET PO SCH (15:12)
[2019-05-07] MEDS: ZINC OXIDE PASTE 113 GM TUBE TOP SCH ×2 (15:26→21:42)
[2019-05-07] MEDS: DEXTROSE 5% 1,000 ML IV SCH (17:41)
[2019-05-07] MEDS: traZODone 50 MG TABLET PO SCH (21:43)
[2019-05-08] MEDS: ALBUTEROL/IPRATROPIUM 3 ML NEB RESP TX SCH ×4 (02:02→19:28)
[2019-05-08] MEDS: PIPERACILLIN/TAZOBACTAM 3,375 MG in SODIUM CHLORIDE 0.9% 100 ML IV SCH ×3 (04:00→19:33)
[2019-05-08 05:31] LABS: Albumin 1.6 G/DL (3.4-5.0); Bilirubin,Total 2.8 MG/DL (0.2-1.0); Calcium 7.5 MG/DL (8.5-10.1)
[2019-05-08 05:52] LABS: Basophils % 0.2 % (0.0-0.8); Eosinophils % 0.4 % (0.00-10.9); Hematocrit 32.4 VOL% (42.0-52.0); Immature Granulocytes % 0.6 %; Immature Granulocytes Absolute 0.06 #; Lymphocytes # 0.5 10*3/uL (1.4-4.0); Lymphocytes % 4.7 % (21.2-54.2); Mean Corpuscular HGB Conc 30.9 GM/DL (32-36); Mean Corpuscular Volume 92.8 FL (87-102); Mean Platelet Volume 12.2 FL (9.6-12.0); Monocytes % 5.1 % (1.7-12.7); Platelet Count 98 T/CUMM (130-400); Red Blood Count 3.49 MC/CUMM (3.8-5.5); Red Cell Distribution Width 15.4 % (9.3-17.3); White Blood Count 10.8 T/CUMM (4-12)
[2019-05-08 06:37] LABS: Anisocytosis 1+; Lymphocytes 8 % (20-55); Platelet Estimate Decreased; Segmented Neutrophils 85 % (50-85); Total Cells Counted 100
[2019-05-08] MEDS: predniSONE 20 MG TABLET PO SCH (08:44)
[2019-05-08] MEDS: METOPROLOL SUCCINATE XL 50 MG TABLET PO SCH (08:44)
[2019-05-08] MEDS: FLUCONAZOLE 100 MG TABLET PO SCH (08:44)
[2019-05-08] MEDS: PANTOPRAZOLE 40 MG TABLET PO SCH (08:44)
[2019-05-08] MEDS: ISOSORBIDE MONONITRATE 60 MG TABLET PO SCH (08:44)
[2019-05-08] MEDS: FUROSEMIDE 40 MG TABLET PO SCH (08:44)
[2019-05-08] MEDS: TAMSULOSIN 0.4 MG CAPSULE PO SCH (08:44)
[2019-05-08] MEDS: LOSARTAN 25 MG TABLET PO SCH (08:44)
[2019-05-08] MEDS: APIXABAN 2.5 MG TABLET PO SCH ×2 (08:45→21:25)
[2019-05-08] MEDS: ZINC OXIDE PASTE 113 GM TUBE TOP SCH ×2 (08:45→21:25)
[2019-05-08] MEDS: DEXTROSE 5% 1,000 ML IV SCH (10:37)
[2019-05-08] MEDS: traZODone 50 MG TABLET PO SCH (21:25)
[2019-05-09] MEDS: ALBUTEROL/IPRATROPIUM 3 ML NEB RESP TX SCH ×4 (00:35→19:11)
[2019-05-09] MEDS: PIPERACILLIN/TAZOBACTAM 3,375 MG in SODIUM CHLORIDE 0.9% 100 ML IV SCH ×3 (02:30→19:46)
[2019-05-09 05:42] LABS: Basophils % 0.2 % (0.0-0.8); Eosinophils # 0.2 10*3/uL (0.0-0.87); Hematocrit 31.9 VOL% (42.0-52.0); Immature Granulocytes % 0.5 %; Immature Granulocytes Absolute 0.06 #; Lymphocytes # 0.7 10*3/uL (1.4-4.0); Lymphocytes % 6.3 % (21.2-54.2); Mean Corpuscular HGB Conc 31.3 GM/DL (32-36); Mean Corpuscular Volume 91.4 FL (87-102); Mean Platelet Volume 11.7 FL (9.6-12.0); Monocytes % 5.3 % (1.7-12.7); Neutrophils % 85.7 % (38.7-73.9); Platelet Count 89 T/CUMM (130-400); Red Blood Count 3.49 MC/CUMM (3.8-5.5); Red Cell Distribution Width 15.1 % (9.3-17.3); White Blood Count 11.3 T/CUMM (4-12)
[2019-05-09 06:12] LABS: Calcium 7.7 MG/DL (8.5-10.1); Osmolality,Calculated 305.9 MOS/KG (273-304)
[2019-05-09 06:27] LABS: Eosinophils 2 % (0-10); Lymphocytes 5 % (20-55); Segmented Neutrophils 90 % (50-85); Total Cells Counted 100
[2019-05-09 06:28] LABS: Anisocytosis Slight; Microcytosis Slight
[2019-05-09 06:29] LABS: Target Cells Slight
[2019-05-09 06:30] LABS: Platelet Estimate Decreased
[2019-05-09] MEDS: DEXTROSE 5% 1,000 ML IV SCH (08:18)
[2019-05-09] MEDS: METOPROLOL SUCCINATE XL 50 MG TABLET PO SCH (08:19)
[2019-05-09] MEDS: FUROSEMIDE 40 MG TABLET PO SCH (08:19)
[2019-05-09] MEDS: TAMSULOSIN 0.4 MG CAPSULE PO SCH (08:19)
[2019-05-09] MEDS: PANTOPRAZOLE 40 MG TABLET PO SCH (08:19)
[2019-05-09] MEDS: APIXABAN 2.5 MG TABLET PO SCH ×2 (08:19→20:26)
[2019-05-09] MEDS: ISOSORBIDE MONONITRATE 60 MG TABLET PO SCH (08:19)
[2019-05-09] MEDS: FLUCONAZOLE 100 MG TABLET PO SCH (08:19)
[2019-05-09] MEDS: LOSARTAN 25 MG TABLET PO SCH (08:19)
[2019-05-09] MEDS: predniSONE 20 MG TABLET PO SCH (08:19)
[2019-05-09] MEDS: ZINC OXIDE PASTE 113 GM TUBE TOP SCH ×2 (08:20→20:26)
[2019-05-09] MEDS: traZODone 50 MG TABLET PO SCH (20:26)
[2019-05-10] MEDS: ALBUTEROL/IPRATROPIUM 3 ML NEB RESP TX SCH ×4 (00:12→19:36)
[2019-05-10] MEDS: PIPERACILLIN/TAZOBACTAM 3,375 MG in SODIUM CHLORIDE 0.9% 100 ML IV SCH ×3 (02:20→18:31)
[2019-05-10] MEDS: METOPROLOL SUCCINATE XL 50 MG TABLET PO SCH (09:04)
[2019-05-10] MEDS: FUROSEMIDE 40 MG TABLET PO SCH (09:04)
[2019-05-10] MEDS: LOSARTAN 25 MG TABLET PO SCH (09:04)
[2019-05-10] MEDS: FLUCONAZOLE 100 MG TABLET PO SCH (09:04)
[2019-05-10] MEDS: DEXTROSE 5% 1,000 ML IV SCH ×2 (09:04→16:52)
[2019-05-10] MEDS: PANTOPRAZOLE 40 MG TABLET PO SCH (09:05)
[2019-05-10] MEDS: TAMSULOSIN 0.4 MG CAPSULE PO SCH (09:05)
[2019-05-10] MEDS: ISOSORBIDE MONONITRATE 60 MG TABLET PO SCH (09:05)
[2019-05-10] MEDS: predniSONE 20 MG TABLET PO SCH (09:05)
[2019-05-10] MEDS: APIXABAN 2.5 MG TABLET PO SCH ×2 (09:05→21:05)
[2019-05-10] MEDS: ZINC OXIDE PASTE 113 GM TUBE TOP SCH ×2 (09:10→21:05)
[2019-05-10] MEDS: traZODone 50 MG TABLET PO SCH (21:05)
[2019-05-11] MEDS: ALBUTEROL/IPRATROPIUM 3 ML NEB RESP TX SCH ×4 (00:20→19:12)
[2019-05-11] MEDS: PIPERACILLIN/TAZOBACTAM 3,375 MG in SODIUM CHLORIDE 0.9% 100 ML IV SCH ×3 (03:59→18:47)
[2019-05-11 05:04] LABS: Basophils % 0.1 % (0.0-0.8); Eosinophils # 0.1 10*3/uL (0.0-0.87); Eosinophils % 1.4 % (0.00-10.9); Hematocrit 29.9 VOL% (42.0-52.0); Hemoglobin 9.6 GM/DL (14.0-18.0); Immature Granulocytes % 0.5 %; Immature Granulocytes Absolute 0.04 #; Lymphocytes # 0.8 10*3/uL (1.4-4.0); Lymphocytes % 8.8 % (21.2-54.2); Mean Corpuscular HGB Conc 32.1 GM/DL (32-36); Mean Corpuscular Volume 88.5 FL (87-102); Mean Platelet Volume 12.3 FL (9.6-12.0); Monocytes % 5.2 % (1.7-12.7); Platelet Count 92 T/CUMM (130-400); Red Blood Count 3.38 MC/CUMM (3.8-5.5); Red Cell Distribution Width 15.1 % (9.3-17.3); White Blood Count 8.8 T/CUMM (4-12)
[2019-05-11 05:28] LABS: Acanthocytes Few; Anisocytosis 1+; Platelet Estimate Decreased
[2019-05-11 05:30] LABS: Calcium 7.9 MG/DL (8.5-10.1); Osmolality,Calculated 293.8 MOS/KG (273-304)
[2019-05-11] MEDS: TAMSULOSIN 0.4 MG CAPSULE PO SCH (09:40)
[2019-05-11] MEDS: ISOSORBIDE MONONITRATE 60 MG TABLET PO SCH (09:40)
[2019-05-11] MEDS: predniSONE 20 MG TABLET PO SCH (09:40)
[2019-05-11] MEDS: PANTOPRAZOLE 40 MG TABLET PO SCH (09:40)
[2019-05-11] MEDS: FLUCONAZOLE 100 MG TABLET PO SCH (09:40)
[2019-05-11] MEDS: FUROSEMIDE 40 MG TABLET PO SCH (09:40)
[2019-05-11] MEDS: LOSARTAN 25 MG TABLET PO SCH (09:40)
[2019-05-11] MEDS: METOPROLOL SUCCINATE XL 50 MG TABLET PO SCH (09:40)
[2019-05-11] MEDS: APIXABAN 2.5 MG TABLET PO SCH ×2 (09:41→20:18)
[2019-05-11] MEDS: DEXTROSE 5% 1,000 ML IV SCH ×3 (09:46→13:54)
[2019-05-11] MEDS: ZINC OXIDE PASTE 113 GM TUBE TOP SCH ×2 (09:46→21:26)
[2019-05-11] MEDS: traZODone 50 MG TABLET PO SCH (20:19)
[2019-05-12] MEDS: ALBUTEROL/IPRATROPIUM 3 ML NEB RESP TX SCH ×4 (00:50→19:55)
[2019-05-12] MEDS: PIPERACILLIN/TAZOBACTAM 3,375 MG in SODIUM CHLORIDE 0.9% 100 ML IV SCH ×2 (03:18→10:10)
[2019-05-12] MEDS: LOSARTAN 25 MG TABLET PO SCH (10:08)
[2019-05-12] MEDS: ISOSORBIDE MONONITRATE 60 MG TABLET PO SCH (10:08)
[2019-05-12] MEDS: predniSONE 20 MG TABLET PO SCH (10:08)
[2019-05-12] MEDS: FLUCONAZOLE 100 MG TABLET PO SCH (10:08)
[2019-05-12] MEDS: FUROSEMIDE 40 MG TABLET PO SCH (10:08)
[2019-05-12] MEDS: METOPROLOL SUCCINATE XL 50 MG TABLET PO SCH (10:09)
[2019-05-12] MEDS: APIXABAN 2.5 MG TABLET PO SCH ×2 (10:09→21:14)
[2019-05-12] MEDS: PANTOPRAZOLE 40 MG TABLET PO SCH (10:09)
[2019-05-12] MEDS: TAMSULOSIN 0.4 MG CAPSULE PO SCH (10:09)
[2019-05-12] MEDS: ZINC OXIDE PASTE 113 GM TUBE TOP SCH ×2 (10:10→21:15)
[2019-05-12] MEDS: DEXTROSE 5% 1,000 ML IV SCH ×2 (10:31→10:32)
[2019-05-12] MEDS: traZODone 50 MG TABLET PO SCH (21:14)
[2019-05-12] MEDS: AMOXICILLIN/CLAV 500 MG TABLET PO SCH (21:14)
[2019-05-13] MEDS: ALBUTEROL/IPRATROPIUM 3 ML NEB RESP TX SCH ×2 (01:08→07:31)
[2019-05-13] MEDS: ISOSORBIDE MONONITRATE 60 MG TABLET PO SCH (10:15)
[2019-05-13] MEDS: predniSONE 20 MG TABLET PO SCH (10:15)
[2019-05-13] MEDS: METOPROLOL SUCCINATE XL 50 MG TABLET PO SCH (10:15)
[2019-05-13] MEDS: LOSARTAN 25 MG TABLET PO SCH (10:15)
[2019-05-13] MEDS: ZINC OXIDE PASTE 113 GM TUBE TOP SCH (10:16)
[2019-05-13] MEDS: PANTOPRAZOLE 40 MG TABLET PO SCH (10:16)
[2019-05-13] MEDS: APIXABAN 2.5 MG TABLET PO SCH (10:16)
[2019-05-13] MEDS: TAMSULOSIN 0.4 MG CAPSULE PO SCH (10:16)
[2019-05-13] MEDS: AMOXICILLIN/CLAV 500 MG TABLET PO SCH (10:16)
[2019-05-13] MEDS: FUROSEMIDE 40 MG TABLET PO SCH (10:16)
[2019-05-13 12:59] VITALS: BP 153/59
== END 2019-05-13 13:59 | DRG 197 ==
LOC: SUATTDRO 16:15 → N.ICU 16:15 → N.5E 17:57
PROVIDERS: ADMIT Internal Medicine; ATTEND Hospitalist